=== PATIENT | male | born 1965 | race Caucasian/White ===

== ENCOUNTER 2024-04-21 13:14 | Inpatient (IN) | payer OTHER ==
[2024-04-21 14:44] VITALS: BMI 39.6
[2024-04-21] MEDS ORDERED: MAGNESIUM HYDROX 2400MG/30ML ORAL SUSPENSION 30 ML CUP PO PRN (14:51)
[2024-04-21] MEDS ORDERED: BENZOCAINE/MENTHOL (CHLORASEPTIC ) LOZENGE MM PRN (14:51)
[2024-04-21] MEDS ORDERED: LOPERAMIDE HCL 2 MG CAPSULE PO PRN (14:51)
[2024-04-21] MEDS ORDERED: MAG HYDROX/AL HYDROX/SIMETH 30 ML UNIT-DOSE CUP PO PRN (14:51)
[2024-04-21] MEDS ORDERED: ONDANSETRON *ODT* 4 MG TABLET SL PRN (14:51)
[2024-04-21] MEDS ORDERED: guaiFENesin 600 MG TABLET.ER (FP) PO PRN (14:51)
[2024-04-21] MEDS ORDERED: diazePAM 5 MG TABLET PO PRN (14:51)
[2024-04-21] MEDS ORDERED: ACETAMINOPHEN 325 MG TABLET (FP) PO PRN (14:51)
[2024-04-21] MEDS ORDERED: POLYETHYLENE GLYCOL (HEALTHYLAX) 3350 17 GM PACKET PO PRN (14:51)
[2024-04-21] MEDS ORDERED: BENZONATATE 200 MG CAPSULE PO PRN (14:51)
[2024-04-21] MEDS ORDERED: DICYCLOMINE HCL 10 MG CAPSULE PO PRN (14:51)
[2024-04-21] MEDS ORDERED: IBUPROFEN 400 MG TABLET (FP) PO PRN (14:51)
[2024-04-21] MEDS ORDERED: P-EPHED 60MG/TRIPROLIDI 2.5MG TABLET PO PRN (14:51)
[2024-04-21] MEDS ORDERED: diazePAM 5 MG TABLET ONE (18:28)
[2024-04-21] MEDS ORDERED: ALBUTEROL SO4 HFA INHALER IH PRN (18:41)
[2024-04-21] MEDS: diazePAM 5 MG TABLET PO SCH (18:47)
[2024-04-21] MEDS ORDERED: GABAPENTIN 300 MG CAPSULE PO SCH (22:00)
[2024-04-21] MEDS ORDERED: PATIENT'S OWN MEDICATION (NON-FORMULARY) (Efavirenz/Emtricitab/Tenofovir 1 TAB Tab) PO SCH (22:00)
[2024-04-21] MEDS: FAMOTIDINE 20 MG TABLET PO SCH (22:02)
[2024-04-21] MEDS: THIAMINE 100 MG TABLET PO SCH (22:02)
[2024-04-21] MEDS: MELATONIN 5 MG TABLETS PO SCH (22:02)
[2024-04-22] MEDS: ELVITEG/COB/EMTRI/TENOF (GENVOYA) TABLET PO SCH (07:01)
[2024-04-22] MEDS: LEVOTHYROXINE NA 25 MCG TABLET (FP) PO SCH (07:01)
[2024-04-22] MEDS ORDERED: TAMSULOSIN HCL 0.4 MG CAP PO SCH (08:30)
[2024-04-22] MEDS: PRENATAL VITAMINS W/ FOLIC ACID TABLET (FP) PO SCH (10:12)
[2024-04-22] MEDS: LITHIUM CARBONATE 300 MG CAPSULE PO SCH (10:12)
[2024-04-22] MEDS: ARIPiprazole 5 MG TABLET PO SCH (10:14)
[2024-04-22] MEDS: IBUPROFEN 600 MG TABLET (FP) PO PRN (10:14)
[2024-04-22] MEDS ORDERED: BENZTROPINE MESYLATE 1 MG TABLET PO SCH (10:45)
[2024-04-22] MEDS: BENZTROPINE MESYLATE 0.5 MG TABLET (FP) PO SCH (10:55)
[2024-04-22] MEDS: BENZTROPINE MESYLATE 1 MG TABLET PO SCH ×3 (11:06→22:13)
[2024-04-22 11:51] LABS: CHLORIDE 107 mmol/L (98-107); POTASSIUM 4.4 mmol/L (3.5-5.1); SODIUM 139 mmol/L (136-145)
[2024-04-22 11:56] LABS: CALCIUM 8.7 mg/dL (8.5-10.1); GLUCOSE,RANDOM 93 mg/dL (74-106)
[2024-04-22 11:57] LABS: ALBUMIN 3.4 g/dl (3.4-5.0); ANION GAP 6 mmol/L (4-13); BLOOD UREA NITROGEN 18.5 mg/dL (7-18); CO2 26 mmol/L (21-32)
[2024-04-22 12:00] LABS: CREATININE 0.9 mg/dL (0.55-1.3); SGOT/AST 51 U/L (15-37); SGPT/ALT 68 U/L (13-61)
[2024-04-22 12:02] LABS: BILIRUBIN,TOTAL 0.5 mg/dL (0.2-1); TOT PROT 6.8 g/dl (6.4-8.2)
[2024-04-22 12:03] LABS: ALK PHOS 158 U/L (45-117)
[2024-04-22 12:23] LABS: HEMOGLOBIN 12.5 GM/dL (11.7-16.9); MCH 28.6 pg (25.7-33.7); MCHC 32.9 g/dl (32.0-35.9); RBC 4.37 M/mm3 (4.00-5.60); RDW 18.9 % (11.9-15.9)
[2024-04-22 12:27] LABS: WHITE BLOOD COUNT 6.4 K/mm3 (4.0-10.0)
[2024-04-22] MEDS: SERTRALINE HCL 50 MG TABLET (FP) PO SCH ×2 (12:37→12:40)
[2024-04-22] MEDS: PATIENT'S OWN MEDICATION (NON-FORMULARY) (Sertraline Hcl [Zoloft] 100 MG Tablet) PO SCH (12:38)
[2024-04-23] MEDS: diazePAM 5 MG TABLET PO SCH (05:45)
[2024-04-23] MEDS: BISMUTH SUBSALICYLATE 262 MG/15 ML BTL PO PRN (11:49)
[2024-04-23 20:43] VITALS: RESP 16
[2024-04-23] MEDS: METHOCARBAMOL 500 MG TABLET PO PRN (21:39)
[2024-04-24] MEDS: diazePAM 5 MG TABLET PO SCH (05:23)
[2024-04-24 06:05] VITALS: BP 142/84; PULSE 62; TEMP 98.4
[2024-04-25] MEDS ORDERED: diazePAM 5 MG TABLET PO ONE (06:00)
== END 2024-04-24 12:11 | disposition short-term general hospital (02) | DRG 897 ==
LOC: YASAS 13:14 → Y3N 17:35
PROVIDERS: ADMIT Allergy & Immunology; ATTEND Surgery
PROC: HZ2ZZZZ Detoxification Services for Substance Abuse Treatment (ICD-10-PCS; principal; 2024-04-21)
DX: F10.230 Alcohol dependence with withdrawal, uncomplicated (principal); F14.20 Cocaine dependence, uncomplicated; B20 Human immunodeficiency virus [HIV] disease; F31.9 Bipolar disorder, unspecified; F43.10 Post-traumatic stress disorder, unspecified; Z95.0 Presence of cardiac pacemaker; Z88.2 Allergy status to sulfonamides; Z88.0 Allergy status to penicillin
CPT/HCPCS: 36415; 80053; 80178; 80305; 80307; 85027; 86780; 93005; 93010